=== PATIENT | male | born 1995 | race Hispanic/Latino ===

== ENCOUNTER 2023-01-18 11:06 | Emergency (ER) | payer OTHER ==
[~2023-01-18] VITALS: Ht 175.3 cm; Wt 77.9 kg
[2023-01-18 14:47] VITALS: BP 131/76; TEMP 97.9; O2SAT 100
== END 2023-01-18 14:49 | disposition home or self-care (01) ==
LOC: M ED 11:06
DX: S43.422A Sprain of left rotator cuff capsule, initial encounter (principal); W22.8XXA Striking against or struck by other objects, initial encounter; Y92.89 Other specified places as the place of occurrence of the external cause; Y93.89 Activity, other specified; Y99.0 Civilian activity done for income or pay; F17.200 Nicotine dependence, unspecified, uncomplicated

== ENCOUNTER → 2023-06-27 | Outpatient (CLI) | payer OTHER | LOC: M PLAIMG 11:12 → M RAD 11:12 | PROVIDERS: ATTEND Internal Medicine Pulmonary Disease | DX: R06.02 Shortness of breath (principal) ==